=== PATIENT | male | born 1955 | race Caucasian/White ===

== ENCOUNTER 2019-03-27 00:17 | Inpatient (IN) | payer MEDICARE ==
[~2019-03-27] VITALS: Ht 180.3 cm; Wt 85.1 kg
[~2019-03-27 00:17] MED LIST: ASPIRIN325 MG PO; LOVASTATIN20 MG PO; NICODERM C1 PATCH .1 TRANSDERM; PLAVIX75 MG PO
[2019-03-27 01:16] LABS: BASOPHILS 0.3 % (0-2); EOSINOPHILS 0.4 % (0-7); HEMATOCRIT 43.9 % (42.0-54.0); HEMOGLOBIN 15.6 g/dL (13.5-17.5); IMMATURE GRANULOCYTES 0.5 % (0-5); LYMPHOCYTES 10.7 % (15-50); MCH 30.4 pg (26.0-34.0); MCHC 35.5 g/dL (31.0-37.0); MCV 85.6 fL (80.0-100.0); MONOCYTES 6.2 % (2-11); NEUTROPHILS 81.9 % (40-80); PLATELET COUNT 269 10x3/uL (130-400); RBC 5.13 10x6/uL (4.20-6.10); RDW 13.7 % (11.5-14.5); WBC 15.4 10x3/uL (4.8-10.8)
--- NOTE | 2019-03-27 01:19 | NUR ---
PT TO CT AT THIS TIME.
[2019-03-27 01:45] LABS: ALKALINE PHOSPHATASE 102 U/L (46-116); ALT (SGPT) 30 U/L (10-68); BILIRUBIN - TOTAL 0.42 mg/dL (0.2-1.3); CALC OSMOLALITY 289 mosm/kg (275-300); CALCIUM 9.4 mg/dL (8.5-10.1); CHLORIDE - SERUM 102 mmol/L (98-107); CREATININE - SERUM 1.4 mg/dL (0.6-1.3); POTASSIUM - SERUM 3.8 mmol/L (3.5-5.1); PROTEIN - SERUM 8.8 g/dL (6.4-8.2); SODIUM 138 mmol/L (136-145); UREA NITROGEN 30 mg/dL (7-18); eGFR NON AFRICAN AMERICAN 54 mL/min (90-120)
[2019-03-27 01:48] LABS: GLUCOSE 237 mg/dL (74-106)
[2019-03-27 01:49] LABS: LIPASE 696 U/L (73-393)
[2019-03-27 01:51] LABS: TROPONIN-I < 0.017 ng/mL (0.000-0.060)
[2019-03-27 02:58] LABS: APPEARANCE CLEAR (CLEAR); COLOR YELLOW (YELLOW); GLUCOSE 100 mg/dL (NEGATIVE); NITRITE NEGATIVE (NEGATIVE); PROTEIN NEGATIVE (NEGATIVE); SPECIFIC GRAVITY 1.025 (1.005-1.020)
[2019-03-27 02:59] LABS: BILIRUBIN NEGATIVE (NEGATIVE); KETONE NEGATIVE (NEGATIVE); UROBILINOGEN NORMAL (NORMAL)
[2019-03-27 03:01] LABS: BACTERIA FEW /hpf (NONE SEEN); EPITHELIAL CELLS 0-5 /hpf (0-5); WHITE CELLS - URINE 0-5 /hpf (0-5)
--- NOTE | 2019-03-27 03:06 | NUR ---
INFUSION OF ROCEPHIN COMPLETE AT THIS TIME.
[2019-03-27 03:49] VITALS: BP 160/81; BMI 27.9
--- NOTE | 2019-03-27 04:24 | NUR ---
PATIENT ARRIVED FROM ER VIA WHEELCHAIR. PATIENT IS ALERT AND ORIENTED, RESTING COMFORTABLY IN BED. RESPIRATIONS ARE EVEN AND UNLABORED. NO S/S OF DISTRESS. NO C/O PAIN. DENIES NEEDS AT THIS TIME. CALL LIGHT WITHIN REACH. WILL CPOC.
[2019-03-27 05:13] VITALS: BP 185/88
[2019-03-27 09:20] VITALS: BP 184/89
--- NOTE | 2019-03-27 10:56 | NUR ---
I have reviewed this patient and I concur with the Shift Assessment completed by the Licensed Practical Nurse today this shift.
[2019-03-27 13:07] VITALS: BP 173/80
[2019-03-27 14:01] VITALS: Ht 180.3 cm; Wt 85.1 kg
[2019-03-27] MEDS ORDERED: ASPIRIN81 MG PO (14:06)
--- NOTE | 2019-03-27 15:40 | NUR ---
TO OR PER BED
--- NOTE | 2019-03-27 15:51 | NUR ---
ISOVUE DYE USED
--- NOTE | 2019-03-27 16:56 | NUR ---
[id number] [id number] REF [id number] EXP 12/31/2021
[2019-03-27 17:10] VITALS: BP 121/66
--- NOTE | 2019-03-27 17:10 | NUR ---
RETURN FROM OR PER BED
--- NOTE | 2019-03-27 18:05 | NUR ---
WITHOUT CHANGES OR DISTRESS NOTED AT THIS TIME. DENIES NEEDS
--- NOTE | 2019-03-27 18:18 | NUR ---
URINE CUP IN ROOM. AND EXPLAINED WHAT WAS NEEDED
--- NOTE | 2019-03-27 19:21 | NUR ---
ASSESSMENT COMPLETE, PT A&O. RESPERATIONS EVEN ON RA. IV TO RIGHT AC WITH NS INFUSING AT KVO, IV SITE CLEAN AND DRY. STRING NOTED AT PTS URINARY MEATUS FROM CYSTOSCOPY THAT WAS DONE EARLIER TODAY. PT DENIES PAIN AND STATED THAT HE IS URINATING WITH OUT DIFFICULTY. NO NEEDS VOICED AT THIS TIME, BED LOW, CL IN REACH.
[2019-03-27 20:00] VITALS: BP 147/69
--- NOTE | 2019-03-27 20:48 | NUR ---
FRESH WATER GIVEN, BS 179, COVERED PER S/S.
[2019-03-28] VITALS: BP 162/75
[2019-03-28 04:00] VITALS: BP 159/65
[2019-03-28 04:59] LABS: BASOPHILS 0.3 % (0-2); EOSINOPHILS 1.4 % (0-7); HEMATOCRIT 41.7 % (42.0-54.0); HEMOGLOBIN 14.5 g/dL (13.5-17.5); IMMATURE GRANULOCYTES 0.3 % (0-5); LYMPHOCYTES 23.9 % (15-50); MCH 29.9 pg (26.0-34.0); MCHC 34.8 g/dL (31.0-37.0); MEAN PLATELET VOLUME 10.1 fL (7.4-10.4); MONOCYTES 9.6 % (2-11); NEUTROPHILS 64.5 % (40-80); PLATELET COUNT 255 10x3/uL (130-400); RBC 4.85 10x6/uL (4.20-6.10); RDW 14.1 % (11.5-14.5); WBC 14.8 10x3/uL (4.8-10.8)
[2019-03-28 05:13] LABS: ANION GAP 12.3 mmol/L (8-16); CALCIUM 8.5 mg/dL (8.5-10.1); CARBON DIOXIDE 27.6 mmol/L (21.0-32.0); CREATININE - SERUM 1.1 mg/dL (0.6-1.3); POTASSIUM - SERUM 3.9 mmol/L (3.5-5.1)
--- NOTE | 2019-03-28 07:06 | NUR ---
ASSESSMENT DONE. DENIES NEEDS
--- NOTE | 2019-03-28 07:56 | OP ---
PATIENT NAME: JENIFER DURHAM MEDICAL RECORD: [id number] :51 LOCATION:D. D.2111 ADMISSION DATE:03/27/19 SURGEON: THIERRY BECKHAM MD DATE OF OPERATION: 03/27/2019 SURGEON: Thierry Beckham MD ANESTHESIA: TIVA by Kendrick Harris CRNA. DIAGNOSIS: Left renal stone, 11 mm. PROCEDURES: Cystoscopy, left retrograde pyelogram, left ureteral stent insertion 6-Samoan x 26 cm with string attached. FINDINGS: Radiodense left renal stones. Nonobstructive prostate. Single ureteral orifices bilaterally. No bladder tumors. BLOOD LOSS: None. CLINICAL HISTORY: This is a 64-year-old male with no previous history of kidney stones. He had a 2-day history of left flank pain with nausea and vomiting and no fevers. He came to the Emergency Room, where a CT scan shows an 11-mm stone lodged in the left UP junction and causing left hydronephrosis. No other stones are seen in the renal system. He comes now to have a ureteral stent inserted to decompress the left renal system. HE IS ALLERGIC TO CODEINE. He was given Ancef permaculture contractor to the OR. DESCRIPTION OF PROCEDURE: The patient was given IV sedation. He was placed into the lithotomy position and prepped and draped. A 21-Samoan cystoscope was used for visualization. Findings are as outlined above. The left ureteral orifice was intubated with a 5-Samoan open-ended ureteral catheter. Fluoroscopy revealed a radiodensity that we suspected was the stone. A retrograde pyelogram was performed and this was indeed the stone. No ureteral filling defects were seen. There was proximal hydronephrosis. Through the lumen of the ureteral catheter, we inserted a Sensor wire up into the renal pelvis. Once the Sensor wire was in the renal pelvis, the ureteral catheter was removed entirely. Over the wire, we inserted the 6-Samoan x 26-cm ureteral stent. Once the stent was in correct position, the wire was entirely withdrawn. The distal end of the stent was pushed into the bladder using the pusher. The bladder was then emptied through the cystoscope sheath and the scope was removed. The string on the distal end of the stent is maintained. It hangs out of the urethra. It was tied to itself in a knot and cut short. The patient was awakened and brought to the recovery room. He can go home today. I have given him a script for Corona and Flomax. I will see him in the office next week to arrange for a left PCNL. He is on Plavix for coronary artery stent. We will have to obtain cardiac clearance from Dr. Salinas also. TRANSINT:[id number] Voice Confirmation ID: [id number] DOCUMENT ID: [id number] OPERATIVE REPORT [id number] JENIFER DURHAM, THIERRY Vera MD at 0756 CC: [id number] DICTATION DATE: 03/27/19 170 TRAFFIC SIGNAL MECHANIC: 03/27/19 1656 ADM [place] [id number] [place] [id number]
[2019-03-28 09:39] VITALS: BP 146/59
[2019-03-28] MEDS ORDERED: LEVOFLOXACIN500 MG PO (12:04)
--- NOTE | 2019-03-28 13:13 | NUR ---
I have reviewed this patient and I concur with the Shift Assessment completed by the Licensed Practical Nurse today this shift.
[2019-03-28 13:14] VITALS: BP 151/79
[2019-03-28] MEDS ORDERED: HYDROCODON-ACE1 EAC7 PO (13:22)
[2019-03-28] MEDS ORDERED: FLOMAX0.4 MG PO (13:23)
--- NOTE | 2019-03-28 14:04 | NUR ---
DC GIVEN TO PT
--- NOTE | 2019-03-28 14:48 | NUR ---
DC HOME PER PERSONAL CAR
--- NOTE | 2019-03-28 17:23 | MORECARE ---
CASE MANAGEMENT DISCHARGE SUMMARY PATIENT: JENIFER DURHAM UNIT: [id number] ADM DATE: 03/27/19 AGE: 64 : [birth year] SEX: M ROOM/BED: D.2111 AUTHOR: BEATRIZDOC PHYSICIAN: REFERRING PHYSICIAN: MAYA CULLEN MD DATE OF SERVICE: 03/28/19 Discharge Plan Patient Name: JENIFER DURHAM Facility: [facility]:[place] : 1955 Planned Disposition: Home Anticipated Discharge Date: 03/28/19 Discharge Date: 03/28/2019 Expected LOS: 1 Initial Reviewer: [email or web address] Initial Review Date: 03/28/2019 Generated: 03/28/19 6:23 pm Comments DCP- Discharge Planning Updated by [email or web address]: Parker Ribeiro on 03/28/19 4:[address] Patient Name: JENIFER DURHAM Admission Status: ER Accout number: [id number] Admission Date: 03-27-2019 : 1955 Admission Diagnosis: Attending: MAYA CULLEN Current LOS: 1 Anticipated DC Date: 03-28-2019 Planned Disposition: Home Primary Insurance: MEDICARE A & B Discharge Planning Comments: CM MET WITH PT IN ROOM TO DISCUSS DISCHARGE PLANNING AND NEEDS. PT REPORTS LIVING AT HOME INDEPENDENTLY WITH A ROOMMATE. PT HAS A GLUCOMETER WITH NO MEDICAL EQUIPMENT PROVIDER AND NO OUTSIDE SERVICES ASSISTING IN THE HOME. PT ATTENDS [facility] OUTPATIENT WOUND CARE WITH DR. MAYA PETER. CM DISCUSSED AVAILABILITY OF HOME HEALTH, REHAB SERVICES AND MEDICAL EQUIPMENT. PT DENIES DISCHARGE NEEDS, IS DRIVING SELF HOME FOR DISCHARGE. Bench Worker Apprentice: Parker Ribeiro DCPIA - Discharge Planning Initial Assessment Updated by [email or web address]: Parker Ribeiro on 03/28/19 5:17 pm * Is the patient Alert and Oriented? Yes * How many steps to enter\exit or inside your home? * PCP DR. CUBA * Pharmacy [facility] * Preadmission Environment Home with Family * ADLs Independent * Equipment Glucometer * Other Equipment NO MEDICAL EQUIPMENT PROVIDER PREFERENCE * List name and contact numbers for known caregivers / representatives who currently or will assist patient after discharge: NONE * Verbal permission to speak to the caregivers and representatives has been obtained from the patient. N/A * Community resources currently utilized None * Please name any agencies selected above. NONE * Additional services required to return to the preadmission environment? No * Can the patient safely return to the preadmission environment? Yes * Has this patient been hospitalized within the prior 30 days at any hospital? No Patient Name: JENIFER DURHAM Page [id number] at 1723 All edits/amendments must be made on the electronic document DICTATION DATE: 03/28/191721 APPEALS EXAMINER: MANUELITO 03/28/191721 RPT#: [id number] DC DATE:03/28/19 STATUS: DIS IN [facility] [address] [place] [address] END OF REPORT
== END 2019-03-28 14:49 | disposition home or self-care (01) | DRG 661 ==
LOC: D.ER 00:17 → D.M2 02:12
PROVIDERS: Family Medicine; Urology; ADMIT Internal Medicine Nephrology; ATTEND Internal Medicine Nephrology
PROC: BT1F1ZZ Fluoroscopy of Left Kidney, Ureter and Bladder using Low Osmolar Contrast (ICD-10-PCS; 2019-03-27)
PROC: 0T778DZ Dilation of Left Ureter with Intraluminal Device, Via Natural or Artificial Opening Endoscopic (ICD-10-PCS; principal; 2019-03-27 13:00)
DX: N13.0 Hydronephrosis with ureteropelvic junction obstruction (principal); N17.9 Acute kidney failure, unspecified; E78.5 Hyperlipidemia, unspecified; E11.9 Type 2 diabetes mellitus without complications; I16.0 Hypertensive urgency

== ENCOUNTER 2019-04-25 08:28 | Day surgery (SDC) | payer MEDICARE, OTHER ==
[~2019-04-25] VITALS: Ht 180.3 cm; Wt 90.0 kg
[~2019-04-25 08:28] MED LIST changes: +ASPIRIN81 MG PO; +FLOMAX0.4 MG PO; +HYDROCODON-ACE1 EAC7 PO; +LEVOFLOXACIN500 MG PO
[2019-04-25 08:47] LABS: HEMATOCRIT 46.1 % (42.0-54.0); HEMOGLOBIN 15.1 g/dL (13.5-17.5); MCH 29.2 pg (26.0-34.0); MCHC 32.8 g/dL (31.0-37.0); MCV 89.2 fL (80.0-100.0); MEAN PLATELET VOLUME 10.1 fL (7.4-10.4); RBC 5.17 10x6/uL (4.20-6.10); RDW 13.4 % (11.5-14.5)
[2019-04-25 08:54] LABS: ANION GAP 14.4 mmol/L (8-16); CARBON DIOXIDE 28.6 mmol/L (21.0-32.0); CREATININE - SERUM 1.1 mg/dL (0.6-1.3)
[2019-04-25 09:31] VITALS: BP 158/80; Ht 180.3 cm; Wt 90.0 kg
--- NOTE | 2019-04-25 14:42 | OP ---
PATIENT NAME: JENIFER DURHAM MEDICAL RECORD: [id number] :51 LOCATION:[facility] ADMISSION DATE: SURGEON: ANA BECKHAM MD DATE OF OPERATION: 04/25/2019 SURGEON: Ana Beckham MD ANESTHESIA: General anesthesia by Margarito Silva CRNA. DIAGNOSIS: Left 11 mm lower pole renal stone. PROCEDURE: Left ESWL times 3000 shocks. FINDINGS: Radiodense renal stone. BLOOD LOSS: None. CLINICAL HISTORY: This is a 64-year-old male, who has severe renal colic from a left 11 mm proximal ureteral stone. He had a left ureteral stent inserted. The stent insertion is managed to push the stone back into the kidney and now it is in the lower pole. He comes to have the stone treated today with ESWL. HE IS ALLERGIC TO CODEINE. He was given Ancef reconciliation analyst to the OR. DESCRIPTION OF PROCEDURE: We placed the patient on the treatment table first. Without any anesthetic, we performed fluoroscopy in order to determine that the stone was visible and targetable. Once this was verified, then we gave the patient induction of general anesthesia. The stone was targeted in 2 planes. 3000 shocks were given to the stone and it was seen to break up. We will see the patient back in followup in 2 weeks' time with a KUB to determine how much of the stone has cleared. TRANSINT:[id number] Voice Confirmation ID: [id number] DOCUMENT ID: [id number] ANA BECKHAM MD at 1442 CC: [id number] DICTATION DATE: 04/25/19 1334 PROGRAM MANAGER TRANSPORTATION: 04/25/19 1345 [address] [place] [id number] [place] [address]
--- NOTE | 2019-04-25 16:01 | NUR ---
1542 IV DC'D. CATHETER TIP INTACT. NO BLEEDING AT SITE. BANDAID APPLIED.
== END 2019-04-25 15:47 | disposition home or self-care (01) ==
LOC: D.OPS 08:28 → D.PAN 11:15 → D.OPS 11:15
PROVIDERS: Anesthesiology; ATTEND Urology
DX: N20.0 Calculus of kidney (principal)

== ENCOUNTER → 2019-05-08 10:57 | Outpatient (CLI) | payer MEDICARE, OTHER ==
[2019-04-25 09:31] VITALS: BMI 27.6
== END | disposition home or self-care (01) ==
LOC: D.RAD 10:57
PROVIDERS: ATTEND Urology
DX: N20.0 Calculus of kidney (principal)

== ENCOUNTER → 2019-05-15 17:48 | Outpatient (CLI) | payer MEDICARE, OTHER ==
[2019-04-25 09:31] VITALS: BMI 27.6
[2019-05-25 10:09] LABS: CALCULI - CA OXALATE MONOHYDR 97 % (()); CALCULI - COLOR Brown (()); CALCULI - COMMENT Note: (()); CALCULI - WEIGHT 119.8 mg (())
== END | disposition home or self-care (01) ==
LOC: D.LABREF 17:48
PROVIDERS: ATTEND Urology
DX: N20.0 Calculus of kidney (principal)

== ENCOUNTER → 2020-12-15 12:57 | Outpatient (CLI) | payer MEDICARE, OTHER ==
[2019-04-25 09:31] VITALS: BMI 27.6
--- NOTE | ~2020-12-15 | EC ---
PATIENT:JENIFER DURHAM DATE OF SERVICE: 12/15/20 SEX: M MEDICAL RECORD: [id number] DATE OF : [birth year] LOCATION:[facility] AGE OF PATIENT: 65 ADMISSION DATE: 12/15/20 REFERRING PHYSICIAN: INTERPRETING PHYSICIAN: DEONNA CABRERA MD ECHOCARDIOGRAM REPORT ECHO CHARGES 4 ECHO COMPLETE Date: 12/15/20 CLINICAL DIAGNOSIS: CAD/ ASSESS EF AND VALVES ECHOCARDIOGRAPHIC MEASUREMENTS (adult normal given) AC root (d.<3.7cm) 3.6 cm LV Septum d (<1.2 cm> 1.3 cm Valve Excursion 1.9 cm LV Septum (systole) 1.6 cm Left Atria (s.<4.0cm> 3.5 cm LVPW d(<1.2cm) 1.2 cm RV (d.<2.3cm) 4.3 cm LVPW (sytole) 1.6 cm LV diastole(<5.6CM) 5.5 cm MV E-F(>70mm/sec) cm LV systole 3.3 cm LVOT Diameter 2.0 cm MV exc.(>10mm) 1.6 cm Est.ejection fraction (50-75%) % DOPPLER: LVIT cm/sec A 91.0 cm/sec E 73.0 cm/sec LA cm/sec RVSP 38 mmHg LVOT 139 cm/sec AOP1/2T m/s Asc. Ao 162 cm/sec RVOT 99 cm/sec RA cm/sec PA 138 cm/sec AV Gradient Peak 10.48mmHg AV Mean 5.31 mmHg AV Area 2.7 cm MV Gradient Peak 3.49 mmHg MV Mean 1.55 mmHg MV Area cm COMMENTS: Telegraph Plant Maintainer: 2 IRA KEITH Laboratory Clerk: 3 Dr. Regalado TAPE# PACS Pericardial Effusion N DATE OF SERVICE: Adequate 2D, color-flow imaging, spectral Doppler, and M-Mode. FINDINGS: Mild LVH. LV internal dimension is normal. Wall motion is normal. EF is greater than or equal to 55%. Aortic valve is tricuspid. No evidence of stenosis by Doppler interrogation. Left atrium is normal at 3.5 cm. Mitral valve shows no prolapse. Trace MR. Right side is grossly normal. Trace TR. TRANSINT:[id number] Voice Confirmation ID: [id number] DOCUMENT ID: [id number] ECHOCARDIOGRAM REPORT [id number] JENIFER DURHAM GREGORY A MD CC: [id number] DICTATION DATE: 12/16/20 1653 TYPE CASTING MACHINE OPERATOR: 12/17/20 0032 DEP CLI 12/15/[address] [id number]
== END | disposition home or self-care (01) ==
LOC: D.HCCECHO 09:00
PROVIDERS: ATTEND Internal Medicine Interventional Cardiology
DX: I25.10 Atherosclerotic heart disease of native coronary artery without angina pectoris (principal)